=== PATIENT | female | born 1980 | race Caucasian/White ===

== ENCOUNTER 2017-10-19 20:04 | Emergency (ER) | payer OTHER ==
[2017-10-19 20:12] VITALS: BP 122/89
[2017-10-19] MEDS ORDERED: LIDOCAINE 1% INJ-PF (10 MG/ML) 30 ML SDV INJ ONE (20:46)
--- NOTE | 2017-10-19 20:54 | ER Document Report ---
ED Extremity Problem, Upper - General Chief Complaint: Laceration L wrist Stated Complaint: LEFT ARM LACERATION Time Seen by Provider: 10/19/17 20:46 Mode of Arrival: Ambulatory Information source: Patient Notes: 37-year-old female presented to ED for laceration to the left forearm. She states she was using an exacto knife to open a package and cut her arm with the exacto knife. She is alert and oriented pupils equal and react to light speaking in full sentences. Respirations are regular unlabored and she walks with a even steady gait. TRAVEL OUTSIDE OF THE [place] IN LAST 30 DAYS: No - HPI Patient complains to provider of: Left, Forearm Onset: Just prior to arrival Recent injury: Yes Where: Home, Indoors Quality of pain: Sharp Pain Level: 5 Context: Other - Laceration Associated symptoms: None Exacerbated by: Movement, Exertion Relieved by: Nothing Similar symptoms previously: No Recently seen / treated by doctor: No - Related Data Allergies/Adverse Reactions: No Known Allergies Allergy (Unverified 10/19/17 20:09) Past Medical History - General Information source: Patient - Social History Smoking Status: Current Every Day Smoker Cigarette use (# per day): Yes - 8 cigarettes a day Chew tobacco use (# tins/day): No Smoking Education Provided: Yes - 4 minutes Frequency of alcohol use: Social - 1-2 drinks a month she had a glass of wine tonight Drug Abuse: None Occupation: Housekeeping Lives with: Family Family History: Reviewed & Not Pertinent Patient has suicidal ideation: No Patient has homicidal ideation: No - Past Medical History Cardiac Medical History: Reports: None Pulmonary Medical History: Reports: None EENT Medical History: Reports: None Neurological Medical History: Reports: None Endocrine Medical History: Reports: None Renal/ Medical History: Reports: None Malignancy Medical History: Reports: None GI Medical History: Reports: None Musculoskeltal Medical History: Reports None Skin Medical History: Reports None Psychiatric Medical History: Reports: None Traumatic Medical History: Reports: None Infectious Medical History: Reports: None Past Surgical History: Reports: Hx Section - Immunizations Immunizations up to date: Yes Hx Diphtheria, Pertussis, Tetanus Vaccination: Yes Review of Systems - Review of Systems Constitutional: No symptoms reported EENT: No symptoms reported Cardiovascular: No symptoms reported Respiratory: No symptoms reported Gastrointestinal: No symptoms reported Genitourinary: No symptoms reported Female Genitourinary: No symptoms reported Musculoskeletal: No symptoms reported Skin: Other - Abrasion to the left forearm Hematologic/Lymphatic: No symptoms reported Neurological/Psychological: No symptoms reported -: Yes All other systems reviewed and negative Physical Exam - Vital signs Vitals: Temp Pulse Resp BP Pulse Ox 98.6 F 78 20 122/89 H 95 10/19/17 20:11 10/19/17 20:11 10/19/17 20:11 10/19/17 20:11 10/19/17 20:11 Interpretation: Normal - General General appearance: Appears well, Alert - HEENT Head: Normocephalic, Atraumatic Eyes: Normal Pupils: PERRL - Respiratory Respiratory status: No respiratory distress Chest status: Nontender Breath sounds: Normal Chest palpation: Normal - Cardiovascular Rhythm: Regular Heart sounds: Normal auscultation Murmur: No - Abdominal Inspection: Normal Distension: No distension Bowel sounds: Normal Tenderness: Nontender Organomegaly: No organomegaly - Back Back: Normal, Nontender - Extremities General upper extremity: Normal color, Normal ROM, Normal temperature General lower extremity: Normal inspection, Nontender, Normal color, Normal ROM , Normal temperature, Normal weight bearing. No: Sid's sign Forearm: Laceration - Neurological Neuro grossly intact: Yes Cognition: Normal Orientation: AAOx4 Grant Coma Scale Eye Opening: Spontaneous Grant Coma Scale Verbal: Oriented Grant Coma Scale Motor: Obeys Commands Grant Coma Scale Total: 15 Speech: Normal Motor strength normal: LUE, RUE, LLE, RLE Sensory: Normal - Psychological Associated symptoms: Normal affect, Normal mood - Skin Skin Temperature: Warm Skin Moisture: Dry Skin Color: Normal Skin irregularity: Laceration - Left forearm Course - Re-evaluation Re-evalutation: 10/19/17 21:28 Patient was treated with ibuprofen and Keflex before discharge. She was given a prescription for Keflex. She was given instructions for care of wound and elevation of arm. Patient had a Alan wrap on her arm when she came in and her left hand was swollen but it is now less swollen after I removed the Alan wrap from her arm. I have explained to her that she needed to elevate this arm to lift the rest of the swelling go down. She does have good feeling in sensation to her fingers. She has a good peripheral pulse. Cap refills are brisk now that the Alan wrap is removed. - Vital Signs Vital signs: Temp Pulse Resp BP Pulse Ox 98.6 F 78 20 122/89 H 95 10/19/17 20:11 10/19/17 20:11 10/19/17 20:11 10/19/17 20:11 10/19/17 20:11 Procedures - Laceration/Wound Repair Left foreArm Time completed: 21:19 Wound length (cm): 2 Wound's Depth, Shape: Superficial, Linear Laceration pre-procedure: Sterile PPE donned, Sterile drapes applied, Shur- Clens applied Anesthetic type: 1% Lidocaine Volume Anesthetic (mLs): 5 Wound explored: Clean Irrigated w/ Saline (mLs): 300 Wound Repaired With: Sutures Suture Size/Type: 4:0, Ethilon Number of Sutures: 4 Layer Closure?: No Post-procedure wound care: Sterile dressing applied Post-procedure NV exam normal: Yes Complications: No Discharge - Discharge Clinical Impression: Laceration of left forearm Qualifiers: Encounter type: initial encounter Qualified Code(s): S51.812A - Laceration without foreign body of left forearm, initial encounter Condition: Stable Disposition: HOME, SELF-CARE Instructions: Family Physicians / Practices Additional Instructions: LACERATION CARE: Your laceration has been sutured to keep the skin edges aligned during healing. The time of suture removal depends on the nature and location of your cut. Please follow the care instructions the doctor has outlined for you and return for further care, according to the schedule you've been given. Keep the wound and dressing clean. Unless you were told otherwise, you may shower daily, blotting the wound dry with a clean, unused towel. At other times, If the dressing gets wet or blood soaked, remove it and blot the wound dry, then reapply a new dressing. Unless you were instructed otherwise, dressings should be changed at least daily. If any signs of infection occur (swelling, redness, drainage, increasing tenderness, red streaks, tender lumps in the armpit or groin above the laceration, or fever), see the doctor immediately. SOAP CLEANSING: Gently wash the wound daily using a mild soap (like Ivory, Phisoderm, Neutrogena). Use warm water, rubbing gently until all debris, ooze, and crusting have been washed from the wound. Allow to dry briefly (about 10 minutes) after cleaning. Repeat this cleansing at least three times a day for the first two days and then once or twice a day. ANTIBIOTIC OINTMENT PROTECTION: Your wounds are such that dressing them is not practical or optional. After cleansing, you should apply a thin coating of antibiotic ointment ( Bacitracin, not Neosporin) to the wounds at least three times daily. This lessens infection risk, and may decrease the amount of scarring. Use a q-tip or dull butter knife, not your finger, to apply this ointment. Any debris or ooze which builds up in the ointment should be gently rubbed off with a sterile gauze pad. Harder crusting may need to be gently scrubbed off with a clean wash cloth with soap and warm water, perhaps applying a warm, wet wash cloth to the wound for ten minutes first. Development of redness, severe itching, or blistering may mean allergy to the ointment. See the doctor. PROPHYLACTIC ANTIBIOTIC: The antibiotics which have been prescribed are designed to decrease the risk of infection. Only certain types of wounds benefit from this -- the typical cut, scrape, or burn DOES NOT require antibiotics. Of course, infection can still occur despite the use of prophylactic antibiotics. Your wound will heal with less chance of an infectious complication if you take the medication as directed. The most important dose is the FIRST dose, so don't delay filling the prescription! FOLLOW-UP CARE: Please return in ___3__ days for an infection check and dressing change. Your sutures should be removed in __10___ days. To facilitate a timely removal of your sutures, you may return to the Emergency Department at [facility]. You do not need to call for an appointment, but the best time to come in for suture removal is early in the morning. If you have been referred to another physician for follow-up care, call that physicians office for an appointment as you were instructed. If you experience a significant change in your laceration, or if you are concerned there may be an infection (swelling, redness, drainage, increasing tenderness, red streaks, tender lumps in the armpit or groin above the laceration, or fever) , return to the Emergency Department immediately re-evaluation. Prescriptions: Cephalexin Monohydrate [Keflex 500 mg Capsule] 500 mg PO Q6H 5 Days capsule Forms: Elevated Blood Pressure, Smoking Cessation Education, Return to Work
[2017-10-19] MEDS ORDERED: CEPHALEXIN 500 MG CAPSULE PO ONE (21:18)
[2017-10-19] MEDS ORDERED: IBUPROFEN 600 MG TABLET PO ONE (21:19)
== END 2017-10-19 21:35 | disposition home or self-care (01) ==
LOC: ER 20:04
PROC: 0HQEXZZ Repair Left Lower Arm Skin, External Approach (ICD-10-PCS; principal; 2017-10-19)
DX: S51.812A Laceration without foreign body of left forearm, initial encounter (principal); W26.0XXA Contact with knife, initial encounter; Y92.009 Unspecified place in unspecified non-institutional (private) residence as the place of occurrence of the external cause; F17.210 Nicotine dependence, cigarettes, uncomplicated
CPT/HCPCS: 99406; 99282; 12001; J3490

== ENCOUNTER 2019-02-26 19:57 | Emergency (ER) | payer MEDICAID, OTHER ==
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
--- NOTE | 2019-02-26 20:44 | RADIOLOGY REPORT (SQ) ---
EXAM DESCRIPTION: XR KNEE 4 OR MORE VIEWS COMPLETED DATE/TME: 02/26/2019 20:16 CLINICAL HISTORY: 38 years, Female, Hyperextension injury, left knee pain COMPARISON: None. NUMBER OF VIEWS: Four TECHNIQUE: Frontal, oblique, and lateral radiographs of the left knee were obtained LIMITATIONS: None. FINDINGS: Visualized osseous structures are normal in appearance. Joint spaces are well-maintained. No acute fracture or dislocation is evident. No significant knee joint effusion. IMPRESSION: No acute osseous anomaly. copyright 2010 [employer]- All Rights Reserved
[2019-02-26 23:00] VITALS: BP 123/88
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
== END 2019-02-26 23:37 | disposition home or self-care (01) ==
LOC: ER 19:57
DX: S89.92XA Unspecified injury of left lower leg, initial encounter (principal); W22.8XXA Striking against or struck by other objects, initial encounter; Y92.89 Other specified places as the place of occurrence of the external cause; F17.200 Nicotine dependence, unspecified, uncomplicated
CPT/HCPCS: 73564; L1830; 99283